=== PATIENT | male | born 1995 | race Hispanic/Latino ===

== ENCOUNTER → 2023-11-17 | Emergency (ER) | payer SELFPAY ==
[~2023-11-17] MED LIST: ACETAMINOPHEN 500 MG TAB ONE; CEPHALEXIN 250 MG CAP ONE; IBUPROFEN 400 MG TAB ONE
--- OUTSIDE RECORDS SUMMARY | 2023-11-17 20:58 | XMS REPORT | Continuity of Care Document ---
Author Name Unknown Address [address] [address] [place] [address] [facility] thconnect Address [address] 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 Role Phone PCP, PATIENT DOES NOT HAVE A Primary Care Physic barb Unavailable Carmen Dukes DO Attending Clinician [phone] CARMEN DUKES Attending Clinician Unavailab le Doctor Unassigned, [place] Attending Clinician U navailable UNKNOWN, ATTENDING Attending Clinician Unavailab JOVITA Velazquez Attending Clinician Unavailable Jovita Hatfield Attending Clinician [phone] Joanne Rdz MD Attending Clinician [phone] Problems Condition Name Condition Details Condition Category Status Onset Date Resolution Date Last Treatment Date Treating Clinician Comments Source No known active problems No known active problems Disease [facility] Allergies, Adverse Reactions, Alerts Allergy Name Allergy Type Status Severity Reaction(s) Onset Date Inactive Date Treating Clinician Comments Source NO KNOWN ALLERGIE S Drug Class Active [facility] Social History Social Habit Start Date Stop Date Quantity Comments Source Exposure to SARS-CoV-2 (event) 2023-01-11 00:00:00 2023-01-21 22:09:00 Not sure [facility] Sex Assigned At 1995 00:00:00 1995 00:00:00 [facility] Smoking Status Start Date Stop Date Source Tobacco smoking consumption unknown [facility] Medications Ordered Medication Name Filled Medication Name Start Date Stop Date Current Medication? Ordering Clinician Indication Dosage Frequency Signature (SIG) Comments Components Source dexamethaso ne (DECADRON PHOSPHATE) injection 10 mg 11-12 01:00: 00 11-12 00:23 :00 No 10mg 10 mg, Intramuscu lar, ONCE, 1 dose, On Wed11/11/21 at 1999, STAT [facility] ketorolac (TORADOL) injection 60 mg 11-12 01:00: 00 11-12 00:23 :00 No 60mg 60 mg, Intramuscu lar, ONCE, 1 dose, On Wed11/11/21 at 1999, [facility] metoclopram donato HCl (REGLAN) injection 10 mg 02-03 09:45: 00 02-03 08:48 :00 No 10mg 10 mg, Slow IV Push, ONCE, 1 dose, Wed02/03/21 at 0445, [facility] iopamidol (ISOVUE 370-500 mL) injection 100 mL 02-03 09:15: 00 02-03 08:09 :00 No [id number] 100mL 100 mL, Intravenou s, ONCE, 1 dose, Wed02/03/21 at 0415, Routine [facility] NaCl 0.9% (NS) IV infusion 1,000 mL 02-03 09:00: 00 Yes 1000mL at 999 mL/hr, Intravenou s, CONTINUOUS , Starting Wed02/03/21 at 0400, Until Discontinu ed, Routine [facility] ondansetron (ZOFRAN (PF)) injection 4 mg 02-03 09:00: 00 02-03 07:55 :00 No 4mg 4 mg, Slow IV Push, ONCE, 1 dose, Wed02/03/21 at 0400, [facility] morpHINE injection 4 mg 02-03 09:00: 00 02-03 07:55 :00 No 4mg 4 mg, Slow IV Push, ONCE, 1 dose, Wed02/03/21 at 0400, STAT [facility] maalox:diph enhydrAMINE :lidocaine 2 % viscous 1:1:1 ([facility]) oral suspension 15 mL 02-03 07:15: 00 02-03 07:11 :00 No 15mL 15 mL, Oral, ONCE, 1 dose, Wed02/03/21 at 0215, DAVID [facility] dicyclomine (BENTYL) tablet 20 mg 02-03 07:00: 00 02-03 07:00 :00 No 20mg 20 mg, Oral, ONCE NOW, 1 dose, Wed02/03/21 at 0200, DAVID [facility] ketorolac (TORADOL) injection 30 mg 02-03 06:00: 00 02-03 06:01 :00 No 30mg 30 mg, Slow IV Push, ONCE, 1 dose, Wed02/03/21 at 0100, DAVID
Fa culty member approving Restricted medication : EMERGENCY ROOM, [facility] dicyclomine 20 mg tablet 02-03 00:00: 00 Yes [id number] 20mg Take 1 tablet by mouth every 6 (six) hours as needed for Abdominal pain. [facility] ondansetron (ZOFRAN) 4 mg tablet 02-03 00:00: 00 Yes [id number] 4mg Take 1 tablet by mouth every 8 (eight) hours as needed for Nausea and Vomiting (N/V). [facility] traMADoL (ULTRAM) 50 mg tablet 02-03 00:00: 00 Yes [id number] 50mg Take 1 tablet by mouth every 6 (six) hours as needed for Pain (scale 7-10). Indication s: acute pain [facility] dicyclomine 20 mg tablet 02-03 00:00: 00 Yes [id number] 20mg Take 1 tablet by mouth every 6 (six) hours as needed for Abdominal pain. [facility] ondansetron (ZOFRAN) 4 mg tablet 02-03 00:00: 00 Yes [id number] 4mg Take 1 tablet by mouth every 8 (eight) hours as needed for Nausea and Vomiting (N/V). [facility] traMADoL (ULTRAM) 50 mg tablet 02-03 00:00: 00 Yes [id number] 50mg Take 1 tablet by mouth every 6 (six) hours as needed for Pain (scale 7-10). Indication s: acute pain [facility] dicyclomine 20 mg tablet 02-03 00:00: 00 Yes [id number] 20mg Take 1 tablet by mouth every 6 (six) hours as needed for Abdominal pain. [facility] ondansetron (ZOFRAN) 4 mg tablet 02-03 00:00: 00 Yes [id number] 4mg Take 1 tablet by mouth every 8 (eight) hours as needed for Nausea and Vomiting (N/V). [facility] traMADoL (ULTRAM) 50 mg tablet 02-03 00:00: 00 Yes [id number] 50mg Take 1 tablet by mouth every 6 (six) hours as needed for Pain (scale 7-10). Indication s: acute pain [facility] dicyclomine 20 mg tablet 02-03 00:00: 00 Yes [id number] 20mg Take 1 tablet by mouth every 6 (six) hours as needed for Abdominal pain. [facility] ondansetron (ZOFRAN) 4 mg tablet 02-03 00:00: 00 Yes [id number] 4mg Take 1 tablet by mouth every 8 (eight) hours as needed for Nausea and Vomiting (N/V). [facility] traMADoL (ULTRAM) 50 mg tablet 02-03 00:00: 00 Yes [id number] 50mg Take 1 tablet by mouth every 6 (six) hours as needed for Pain (scale 7-10). Indication s: acute pain [facility] Vital Signs Vital Name Observation Time Observation Value Comments S kwesi Systolic blood pressure 2023-01-22 03:10:00 169 mm[Hg] [facility] Diastolic blood pressure 2023-01-22 03:10:00 81 mm[Hg] [facility] Heart rate 2023-01-22 03:10:00 82 /min [facility] Body temperature 2023-01-22 03:10:00 37.22 Krystal [facility] Respiratory rate 2023-01-22 03:10:00 18 /min [facility] Body height 2023-01-22 03:10:00 175.3 cm [facility] Body weight 2023-01-22 03:10:00 104.327 kg [facility] BMI 2023-01-22 03:10:00 33.97 kg/m2 [facility] Oxygen saturation in Arterial blood by Pulse oximetry 2023-01-22 03:10:00 97 /min [facility] Systolic blood pressure 2021-11-11 23:46:00 157 mm[Hg] [facility] Diastolic blood pressure 2021-11-11 23:46:00 94 mm[Hg] [facility] Heart rate 2021-11-11 23:46:00 87 /min [facility] Body temperature 2021-11-11 23:46:00 37 Krystal [facility] Respiratory rate 2021-11-11 23:46:00 14 /min [facility] Body height 2021-11-11 23:46:00 175.3 cm [facility] Body weight 2021-11-11 23:46:00 107.502 kg [facility] BMI 2021-11-11 23:46:00 35.00 kg/m2 [facility] Oxygen saturation in Arterial blood by Pulse oximetry 2021-11-11 23:46:00 99 /min [facility] Systolic blood pressure 2021-02-03 09:02:00 98 mm[Hg] [facility] Diastolic blood pressure 2021-02-03 09:02:00 68 mm[Hg] [facility] Heart rate 2021-02-03 09:02:00 103 /min [facility] Respiratory rate 2021-02-03 09:02:00 16 /min [facility] Oxygen saturation in Arterial blood by Pulse oximetry 2021-02-03 09:02:00 98 /min [facility] Body temperature 2021-02-03 05:12:00 36.56 Krystal [facility] Body height 2021-02-03 05:12:00 175.3 cm [facility] Body weight 2021-02-03 05:12:00 104.327 kg [facility] BMI 2021-02-03 05:12:00 33.97 kg/m2 [facility] Procedures Procedure Date / Time Performed Performing Clinicia n Source ASSIGNMENT OF BENEFITS 2023-01-22 03:19:59 Docto r Unassigned, [place] [facility] NOTICE OF PRIVACY PRACTICES 2023-01-22 03:07:44 Doctor Unassigned, [place] [facility] CONSENT/REFUSAL FOR DIAGNOSIS AND TREATMENT 2023-01-22 03:07:26 Doctor Unassigned, [place] [facility] RAPID STREP SCREEN FOR GROUP A 2021-11-11 23:55:00 Jovita Fried [facility] NOTICE OF PRIVACY PRACTICES 2021-11-11 23:45:36 Doctor Unassigned, [place] [facility] CONSENT/REFUSAL FOR DIAGNOSIS AND TREATMENT 2021-11-11 23:44:59 Doctor Unassigned, [place] [facility] CT ABDOMEN PELVIS W CONTRAST 2021-02-03 08:14:08 Joanne Rdz [facility] URINALYSIS 2021-02-03 07:08:00 Jovita Fried [facility] XR ABDOMEN 1 VW 2021-02-03 06:16:51 [facility] 2021-02-03 05:31:00 Jovita Fried [facility] HEPATIC FUNCTION PANEL ([id number]) (ALB,T.PRO,BILI T,BU/BC,ALT,AST,ALK PHOS) 2021-02-03 05:31:00 Jovita Fried [facility] BASIC METABOLIC PANEL (NA, K, CL, CO2, GLUCOSE, BUN, CREATININE, CA) 2021-02-03 05:31:00 Jovita Freid [facility] CBC WITH DIFF 2021-02-03 05:31:00 Jovita Fried [facility] Encounters Start Date/Time End Date/Time Encounter Type Admission Type Attending Clinicians Care Facility Care Department Encounter ID Source 2023-01-21 22:13:00 2023-01-21 23:25:00 Emergency Carmen Dukes [facility] [id number] [facility] 2023-01-21 22:13:00 2023-01-21 23:25:00 Emergency X CARMEN DUKES [facility] ERT [id number] [facility] 2023-01-21 00:00:00 2023-01-21 00:00:00 Orders Only Doctor Unassigned, [place] [facility] [id number] [facility] 2022-08-08 18:20:00 2022-08-08 18:20:00 Outpatient R UNKNOWN, ATTENDING [facility] [id number] [facility] 2021-11-11 18:52:00 2021-11-11 20:00:00 Emergency X JOVITA FRIED [facility] ERT [id number] [facility] 2021-11-11 18:52:00 2021-11-11 20:00:00 Emergency Jovita Fried [facility] [id number] [facility] 2021-02-03 00:02:00 2021-02-03 04:05:00 Emergency Jovita Fried [facility] [id number] [facility] 2021-02-03 00:02:00 2021-02-03 00:02:00 Emergency X JOVITA FRIED [facility] ERT [id number] [facility] Results Test Description Test Time Test Comments Results Result Co mments Source [facility] Metabolic Panel (NA, K, CL, CO2, GLUCOSE, BUN, CREATININE, CA)2021-02-03 06:03:33* Test Item Value Reference Range Interpretation Comme nts NA (test code = 1587342455) 139 mmol/L 135-145 K (test code = 3806897232) 4.2 mmol/L 3.5-5.0 CL (test code = 8238904553) 105 mmol/L 98-108 CO2 TOTAL (test code = 7770791667) 26 mmol/L 23-31 AGAP (test code = 6978183618) 2-16 BUN (test code = 3408758034) 13 mg/dL 7-23 GLUCOSE (test code = 7680418737) 139 mg/dL 70-110 H CREATININE (test code = 8613088002) 0.72 mg/dL 0.60-1.25 CALCIUM (test code = 8207517549) 9.4 mg/dL 8.6-10.6 eGFR (test code = 9967539003) mL/min/1.73m2 JAMIL (test code = JAMIL) Association of Glomerular Filtration Rate (GFR) and Staging of Kidney Disease* + --+ --+ ------+| GFR (mL/min/1.73 m2) ?| With Kidney Damage ?| ?Without Kidney Damage+ --------+ --------+ +| ?>90 ?| ?Stage one ?| ? Normal ?+ ---+ ---+ -------+| ?60-89 ?| ?Stage two ?| ? Decreased GFR ? + --+ --+ ------+| ?30-59 ?| ?Stage three ?| ? Stage three ? + --+ --+ ------+| ?15-29 ?| ?Stage four ? | ? Stage four ?+ ---+ ---+ -------+| ?<15 (or dialysis) ? ?| ?Stage five ? | ? Stage five ?+ ---+ ---+ -------+ *Each stage assumes the associated GFR level has been in effect for at least three months. ?Stages 1 to 5, with or without kidney disease, indicate chronic kidney disease. Notes: Determination of stages one and two (with eGFR >59mL/min/1.73 m2) requires estimation of kidney damage for at least three months as defined by structural or functional abnormalities of the kidney, manifested by either:Pathological abnormalities or Markers of kidney damage (including abnormalities in the composition of the blood or urine or abnormalities in imaging tests). Lab Interpretation (test code = 40683-5) [facility] (ALB, T.PRO, BILI T, BU/BC, ALT, AST, ALK PHOS)2021-02-03 06:03:28* Test Item Value Reference Range Interpretation Comme nts TOTAL BILI (test code = 7542097519) 0.4 mg/dL 0.1-1.1 BILI UNCON (test code = 1614885789) 0.3 mg/dL 0.1-1.1 BILI CONJ (test code = 6984078714) 0.0 mg/dL 0.0-0.3 T PROTEIN (test code = 0518715505) 8.2 g/dL 6.3-8.2 ALBUMIN (test code = 7088017098) 4.6 g/dL 3.5-5.0 ALK PHOS (test code = 0323878611) 103 U/L 34-122 ALTv (test code = 1742-6) 38 U/L 5-50 AST(SGOT) (test code = 4837277653) 31 U/L 13-40 Lab Interpretation (test cod e = 80651-7) Normal [facility] Aikow1366-08-22 06:03:13* Test Item Value Reference Range Interpretation Comme nts LIPASE (test code = 3978863933) 160 U/L 0-220 Lab Interpretation (test cod e = 89180-1) [facility] with Mgzdhijnglgl6740-28-83 05:43:52* Test Item Value Reference Range Interpretation Comme nts WBC (test code = 6690-2) See_Comment H [Automated Keeka ge] The system which generated this result transmitted reference range: 4.20 - 10.70 10*3/?L. The reference range was not used to interpret this result as normal/abnormal. RBC (test code = 789-8) See_Comment [Automated Keeka ge] The system which generated this result transmitted reference range: 4.26 - 5.52 10*6/?L. The reference range was not used to interpret this result as normal/abnormal. HGB (test code = 718-7) 15.1 g/dL 12.2-16.4 HCT (test code = 4544-3) 45.7 % 38.4-49.3 MCV (test code = 787-2) 82.9 fL 81.7-95.6 MCH (test code = 785-6) 27.4 pg 26.1-32.7 MCHC (test code = 786-4) 33.0 g/dL 31.2-35.0 RDW-SD (test code = 19794-5) 38.8 fL 38.5-51.6 RDW-CV (test code = 788-0) 13.0 % 12.1-15.4 PLT (test code = 777-3) See_Comment [Automated messa ge] The system which generated this result transmitted reference range: 150 - 328 10*3/?L. The reference range was not used to interpret this result as normal/abnormal. MPV (test code = 20801-6) 9.6 fL 9.8-13.0 L NRBC/100 WBC (test code = 1583737628) See_Comment [Automated Favoe ssage] The system which generated this result transmitted reference range: 0.0 - 10.0 /100 WBCs. The reference range was not used to interpret this result as normal/abnormal. NRBC x10^3 (test code = 7554217161) <0.01 See_Comment [Automated messa ge] The system which generated this result transmitted reference range: 10*3/?L. The reference range was not used to interpret this result as normal/abnormal. GRAN MAT (NEUT) % (test code = 770-8) 73.8 % IMM GRAN % (test code = 8960543276) 0.70 % LYMPH % (test code = 736-9) 19.8 % MONO % (test code = 5905-5) 4.6 % EOS % (test code = 713-8) 0.9 % BASO % (test code = 706-2) 0.2 % GRAN MAT x10^3(ANC) (test code = 7488725525) 8.30 10*3/uL 1.99-6.95 H IMM GRAN x10^3 (test code = 0595632674) 0.08 10*3/uL 0.00-0.06 H LYMPH x10^3 (test code = 731-0) 2.22 10*3/uL 1.09-3.23 MONO x10^3 (test code = 742-7) 0.52 10*3/uL 0.36-1.02 EOS x10^3 (test code = 711-2) 0.10 10*3/uL 0.06-0.53 BASO x10^3 (test code = 704-7) <0.03 0.01-0.09 Lab Interpretation (test code = 36007-0) Abnormal [facility]"
--- NOTE | 2023-11-17 21:12 | ER ---
Nurse's Notes [facility] Name: Pratik Matos Age: 28 yrs Sex: Male : 1995 Arrival Date: 11/17/2023 Time: 20:56 Bed 20 Private MD: Diagnosis: Balanoposthitis;Balanitis Presentation: 11/16 21:04 Chief complaint: Patient states: I have been having swelling to my penis for 2 or 3 kd3 days now. I am uncircumcised and i am not sure if i have a yeast infection or not. I am not erect at all, its just swollen. Coronavirus screen: Vaccine status: Patient reports being unvaccinated. Ebola Screen: No symptoms or risks identified at this time. Initial Sepsis Screen: Does the patient meet any 2 criteria? No. Patient's initial sepsis screen is negative. Does the patient have a suspected source of infection? No. Patient's initial sepsis screen is negative. Risk Assessment: Do you want to hurt yourself or someone else? Patient reports no desire to harm self or others. Onset of symptoms was November 17, 2023. 21:04 Method Of Arrival: Ambulatory kd3 21:04 Acuity: MONSE 3 kd3 Triage Assessment: 21:06 General: Appears in no apparent distress. Behavior is calm, cooperative. Pain: kd3 Complains of pain in head of penis and shaft of penis. Historical: - Allergies: 21:06 No Known Allergies; kd3 - Immunization history:: Adult Immunizations up to date. - Social history:: Smoking status: Patient denies any tobacco usage or history of. Screenin:10 [facility] ED Fall Risk Assessment (Adult) History of falling in the last 3 months, jw7 including since admission No falls in past 3 months (0 pts) Confusion or Disorientation No (0 pts) Intoxicated or Sedated No (0 pts) Impaired Gait No (0 pts) Mobility Assist Device Used No (0 pt) Altered Elimination No (0 pt) Score/Fall Risk Level 0 - 2 = Low Risk Oriented to surroundings, Maintained a safe environment, Educated pt \T\ family on fall prevention, incl call for assistance when getting out of bed. Abuse screen: Denies threats or abuse. Denies injuries from another. Nutritional screening: No deficits noted. Tuberculosis screening: No symptoms or risk factors identified. Assessment: 21:10 General: Appears in no apparent distress. comfortable, Behavior is calm, cooperative. jw7 Pain: Complains of pain in shaft of penis and head of penis Pain does not radiate. Pain currently is 6 out of 10 on a pain scale. Quality of pain is described as burning, Pain began 2-3 days ago. Is continuous. Neuro: Level of Consciousness is awake, alert, obeys commands, Oriented to person, place, time, situation. Cardiovascular: Heart tones S1 S2 present Capillary refill < 3 seconds Clubbing of nail beds is absent JVD is absent Patient's skin is warm and dry. Respiratory: Airway is patent Trachea midline Respiratory effort is even, unlabored, Respiratory pattern is regular, symmetrical, Breath sounds are clear bilaterally. GI: Abdomen is flat, non-distended, Bowel sounds present X 4 quads. Abd is soft and non tender X 4 quads. : No deficits noted. No signs and/or symptoms were reported regarding the genitourinary system. EENT: No deficits noted. No signs and/or symptoms were reported regarding the EENT system. Derm: Skin is intact, is healthy with good turgor, Skin is dry, Skin is normal, Skin temperature is warm. Musculoskeletal: Circulation, motion, and sensation intact. Range of motion: intact in all extremities. 21:59 Reassessment: Patient appears in no apparent distress at this time. No changes from jw7 previously documented assessment. Patient and/or family updated on plan of care and expected duration. Pain level reassessed. Patient is alert, oriented x 3, equal unlabored respirations, skin warm/dry/pink. Vital Signs: 21:04 Weight 102.06 kg; Height 5 ft. 9 in. ; kd3 21:23 BP 139 / 78; Pulse 100; Resp 18; Temp 98.8; Pulse Ox 97% on R/A; vk 21:04 Body Mass Index 33.23 (102.06 kg, 175.26 cm) kd3 ED Course: 20:58 Patient arrived in ED. mr 20:59 Alan Johnson MD is Attending Physician. sp4 21:06 Triage completed. kd3 21:06 Arm band placed on. kd3 21:10 Prabhu Hackett MD is Referral Physician. sp4 21:10 Patient has correct armband on for positive identification. Bed in low position. Call jw7 light in reach. Provided Education on: Use of Call Light. 21:17 Jerrica Serna, RN is Primary Nurse. jw7 22:01 No provider procedures requiring assistance completed. Patient did not have IV access jw7 during this emergency room visit. Administered Medications: 21:50 Drug: Cephalexin PO 500 mg PO once Route: PO; jw7 22:02 Follow up: Response: No adverse reaction jw7 21:50 Drug: Ibuprofen PO 800 mg PO once Route: PO; jw7 22:02 Follow up: Response: No adverse reaction jw7 21:50 Drug: Acetaminophen PO 1000 mg PO once Route: PO; jw7 22:01 Follow up: Response: No adverse reaction jw7 Medication: 22:01 VIS not applicable for this client. jw7 Outcome: 21:11 Discharge ordered by . malathi 22:01 Discharged to home ambulatory, jw7 22:01 Condition: stable 22:01 Discharge instructions given to patient, Instructed on discharge instructions, follow up and referral plans. medication usage, Demonstrated understanding of instructions, follow-up care, medications, Prescriptions given X 2, 22:02 Patient left the ED. jw7 Signatures: Lillian Wong, Reg Reg mr RyleeYoko, RN RN kd3 Jerrica Serna, LALITO RN jw7 Alan Johnson MD MD sp4 Huyen Carrizales
--- NOTE | 2023-11-17 21:12 | EDPHYS ---
Physician Documentation [facility] Name: Pratik Matos Age: 28 yrs Sex: Male : 1995 Arrival Date: 11/17/2023 Time: 20:56 Bed 20 Private MD: ED Physician Alan Johnson HPI: 11/16 20:59 This 28 yrs old Male presents to ER via Unassigned with complaints of Penile sp4 Problem, Swelling. Historical: - Allergies: 21:06 No Known Allergies; kd3 - Immunization history:: Adult Immunizations up to date. - Social history:: Smoking status: Patient denies any tobacco usage or history of. Vital Signs: 21:04 Weight 102.06 kg; Height 5 ft. 9 in. ; kd3 21:23 BP 139 / 78; Pulse 100; Resp 18; Temp 98.8; Pulse Ox 97% on R/A; vk 21:04 Body Mass Index 33.23 (102.06 kg, 175.26 cm) kd3 MDM: 21:01 Patient medically screened. sp4 Administered Medications: 21:50 Drug: Cephalexin PO 500 mg PO once Route: PO; jw7 22:02 Follow up: Response: No adverse reaction jw7 21:50 Drug: Ibuprofen PO 800 mg PO once Route: PO; jw7 22:02 Follow up: Response: No adverse reaction jw7 21:50 Drug: Acetaminophen PO 1000 mg PO once Route: PO; jw7 22:01 Follow up: Response: No adverse reaction jw7 Disposition Summary: 11/17/23 21:11 Discharge Ordered Notes: Location: Home sp4 Problem: new sp4 Symptoms: have improved sp4 Condition: Stable sp4 Diagnosis - Balanoposthitis sp4 - Balanitis sp4 Followup: sp4 - With: Prabhu Hackett MD - When: 7 - 10 days - Reason: Recheck today's complaints Discharge Instructions: - Discharge Summary Sheet sp4 - Balanitis sp4 Forms: - Patient Portal Instructions sp4 Prescriptions: - Cephalexin 500 mg Oral Capsule - take 1 capsule ORAL route every 12 hours for 10 days; 20 capsule; Refills: 0, sp4 Product Selection Permitted - Clotrimazole 1 % Topical cream - Apply to affected area 1 application TOPICAL route every 12 hours for 10 days sp4 apply under the foreskin twice daily for 10 days; 15 gram; Refills: 0, Product Selection Permitted Signatures: Yoko Mckee RN RN kd3 Jerrica Serna RN RN jw7 Alan Johnson MD MD sp4
[2023-11-17 22:16] VITALS: BP 139/78; TEMP 98.8; O2SAT 97
== END ==
LOC: ER 20:56
DX: N48.1 Balanitis (principal)

== ENCOUNTER 2024-04-20 20:43 | Emergency (ER) | payer SELFPAY ==
[2024-04-20] MEDS ORDERED: CYCLOBENZAPRINE 10 MG TAB ONE (21:27)
[2024-04-20] MEDS ORDERED: KETOROLAC 30 MG/ML INJ ONE (21:27)
[2024-04-20] MEDS ORDERED: dexAMETHasone 10 MG/ML VIAL ONE (21:27)
--- NOTE | 2024-04-20 22:57 | RAD REPORT ---
EXAM DESCRIPTION: CT - Spine Lumbar Wo Con - 04/20/2024 9:49 pm CLINICAL HISTORY: Pain;Radiculopathy COMPARISON: No comparisons TECHNIQUE: Axial noncontrast CT imaging of the lumbar spine was performed with coronal and sagittal re-formatted images. All CT scans are performed using dose optimization technique as appropriate and may include automated exposure control or mA/KV adjustment according to patient size. FINDINGS: No acute lumbar spine fracture seen. No aggressive marrow pattern or malalignment. Paraspinal tissues are normal in thickness. No paraspinal abscess or hematoma seen. Intervertebral disc disease assessment is inherently limited by CT. Within these limitations, no high -grade canal stenosis suspected. Small disc bulge centrally at L5-S1. No significant central canal st enosis or foraminal narrowing. IMPRESSION: No acute findings of the lumbar spine. If there is persistent clinical concern for radiculopathy, additional evaluation by lumbar spine MRI on outpatient basis would be helpful.
--- NOTE | 2024-04-20 23:02 | EDPHYS ---
Physician Documentation [facility] Name: Pratik Matos Age: 28 yrs Sex: Male : 1995 Arrival Date: 04/20/2024 Time: 20:43 Bed 14 Private MD: ED Physician Alan Johnson HPI: 04/20 21:00 This 28 yrs old Male presents to ER via Ambulatory with complaints of Back sp4 Pain. 21:35 The patient presents with pain. patient states that he injured his low back at work sb4 about 2 weeks ago. he has not rested nor taken any mediations. states the pain is getting more intense and is now radiating down his legs. denies any numbness, tingling, or gait abnormalities. Historical: - Allergies: 20:58 No Known Allergies; kj2 - Home Meds: 20:59 None [Active]; kj2 - PMHx: 20:59 None; kj2 - PSHx: 20:59 None; kj2 - Immunization history:: Adult Immunizations unknown. - Infectious Disease History:: Denies. - Social history:: Smoking status: Reported history of juuling and/or vaping. ROS: 21:35 Constitutional: Negative for fever, chills, and weight loss, sb4 21:36 Back: Positive for injury or acute deformity, pain at rest, pain with movement, sb4 radiated pain, of the lumbar area, 21:36 All other systems are negative, Exam: 21:36 Constitutional: This is a well developed, well nourished patient who is awake, alert, sb4 and in no acute distress. Head/Face: Normocephalic, atraumatic. Eyes: Extra-ocular motions intact. Periorbital areas with no swelling, redness, or edema. ENT: Mucous membranes moist. Skin: Warm, dry with normal turgor. Normal color with no rashes, no lesions, and no evidence of cellulitis. Neuro: Awake and alert, GCS 15, oriented to person, place, time, and situation. Motor strength 5/5 in all extremities. Sensory grossly intact. 21:36 Back: pain, that is moderate, ROM is painful, normal spinal alignment noted, CVA tenderness, is absent, muscle spasm, is not present, 21:36 Neuro: Motor: moves all fours, Sensation: is normal, Gait: is steady, at a normal pace, without difficulty, Vital Signs: 20:57 BP 124 / 78; Pulse 75; Resp 18; Temp 98.7; Pulse Ox 98% on R/A; Weight 99.79 kg; Height kj2 5 ft. 9 in. ; Pain 8/10; 22:23 BP 124 / 66; Pulse 60; Resp 17; Pulse Ox 97% on R/A; Pain 6/10; rg5 23:00 BP 125 / 76; Pulse 78; Resp 17; Pulse Ox 98% on R/A; Pain 4/10; rg5 20:57 Body Mass Index 32.49 (99.79 kg, 175.26 cm) kj2 20:57 Pain Scale: Adult kj2 22:23 Pain Scale: Adult rg5 23:00 Pain Scale: Adult rg5 Raghav Coma Score: 21:09 Eye Response: spontaneous(4). Motor Response: obeys commands(6). Verbal Response: rg5 oriented(5). Total: 15. MDM: 21:02 Patient medically screened. sb4 23:01 Data reviewed: vital signs, nurses notes, radiologic studies, and as a result, I will sb4 discharge patient. Counseling: I had a detailed discussion with the patient and/or guardian regarding the historical points, exam findings, and any diagnostic results supporting the discharge/admit diagnosis, radiology results, to return to the emergency department if symptoms worsen or persist or if there are any questions or concerns that arise at home. 04/20 21:18 Order name: CT Lumbar Spine Wo Con; Complete Time: 22:58 sb4 Administered Medications: 21:30 Drug: Ketorolac IM 30 mg IM once Route: IM; Site: right gluteus; rg5 23:18 Follow up: Response: No adverse reaction; Pain is decreased rg5 21:30 Drug: Dexamethasone IM 10 mg IM once Route: IM; Site: right gluteus; rg5 23:17 Follow up: Response: No adverse reaction; Pain is decreased rg5 21:37 Drug: Cyclobenzaprine PO 10 mg PO once Route: PO; rg5 23:17 Follow up: Response: No adverse reaction; Pain is decreased rg5 Disposition: 04/21 01:55 Co-signature as Attending Physician, Alan Johnson MD I agree with the assessment sp4 and plan of care. I reviewed the patient's care provided by the Advanced Practice Provider and agree with the diagnosis and treatment plan. Disposition Summary: 04/20/24 23:01 Discharge Ordered Notes: Location: Home sb4 Problem: an ongoing problem sb4 Symptoms: have improved sb4 Condition: Stable sb4 Diagnosis - Strain of muscle, fascia and tendon of lower back sb4 Followup: sb4 - With: Private Physician - When: As needed - Reason: Recheck today's complaints, Re-evaluation by your physician Discharge Instructions: - Discharge Summary Sheet sb4 - Acute Back Pain, Adult sb4 - Low Back Sprain or Strain Rehab sb4 Forms: - Work release form sb4 - Patient Portal Instructions sb4 - Leadership Thank You Letter sb4 Prescriptions: - Cyclobenzaprine 10 mg Oral Tablet - take 1 tablet ORAL route every 8 hours As needed; 30 tablet; Refills: 0, sb4 Product Selection Permitted - Diclofenac Sodium 75 mg Oral Tablet Sustained Release - take 1 tablet ORAL route 2 times per day; 30 tablet; Refills: 0, Product sb4 Selection Permitted - Medrol (David) 4 mg Oral Tablets, Dose Pack - take 1 tablet ORAL route as directed - follow package instructions; 1 packet; sb4 Refills: 0, Product Selection Permitted Signatures: Dispatcher [employer] Rhiannon Watson, CRISTINA EVANS sb4 Alan Johnson MD MD sp4 Clayton Peterson RN RN rg5 Juany Santillan RN RN kj2
--- NOTE | 2024-04-20 23:02 | ER ---
Nurse's Notes [facility] Name: Pratik Matos Age: 28 yrs Sex: Male : 1995 Arrival Date: 04/20/2024 Time: 20:43 Bed 14 Private MD: Diagnosis: Strain of muscle, fascia and tendon of lower back Presentation: 04/20 20:55 Chief complaint: Patient states: back pain started two weeks ago, now hurts his legs. kj2 Coronavirus screen: At this time, the client does not indicate any symptoms associated with coronavirus-19. Ebola Screen: No symptoms or risks identified at this time. Initial Sepsis Screen: Does the patient meet any 2 criteria? No. Patient's initial sepsis screen is negative. Does the patient have a suspected source of infection? No. Patient's initial sepsis screen is negative. Risk Assessment: Do you want to hurt yourself or someone else? Patient reports no desire to harm self or others. Onset of symptoms was April 05, 2024. 20:55 Method Of Arrival: Ambulatory kj2 20:55 Acuity: MONSE 3 kj2 Triage Assessment: 21:00 General: Appears in no apparent distress. Behavior is calm, cooperative. Neuro: Level kj2 of Consciousness is awake, alert, obeys commands, Oriented to person, place, time, situation. Cardiovascular: Patient's skin is warm and dry. Respiratory: Airway is patent Respiratory effort is even, unlabored, Respiratory pattern is regular. Historical: - Allergies: 20:58 No Known Allergies; kj2 - Home Meds: 20:59 None [Active]; kj2 - PMHx: 20:59 None; kj2 - PSHx: 20:59 None; kj2 - Immunization history:: Adult Immunizations unknown. - Infectious Disease History:: Denies. - Social history:: Smoking status: Reported history of juuling and/or vaping. Screenin:09 [facility] ED Fall Risk Assessment (Adult) History of falling in the last 3 months, rg5 including since admission No falls in past 3 months (0 pts) Confusion or Disorientation No (0 pts) Intoxicated or Sedated No (0 pts) Impaired Gait No (0 pts) Mobility Assist Device Used No (0 pt) Altered Elimination No (0 pt) Score/Fall Risk Level 0 - 2 = Low Risk Oriented to surroundings, Maintained a safe environment, Educated pt \T\ family on fall prevention, incl call for assistance when getting out of bed, Hourly rounding (assess needs \T\ fall precautionary measures) done. Abuse screen: Denies threats or abuse. Nutritional screening: No deficits noted. Tuberculosis screening: No symptoms or risk factors identified. Assessment: 21:09 General: Appears in no apparent distress. Behavior is calm, cooperative, appropriate rg5 for age. Pain: Complains of pain in back Pain radiates to right leg and left leg Pain currently is 6 out of 10 on a pain scale. Quality of pain is described as shooting, pinching, Pain began 2-3 days ago. Is intermittent. Neuro: Level of Consciousness is awake, alert, obeys commands, Oriented to person, place, time, situation. Cardiovascular: Denies chest pain, Heart tones S1 S2 Capillary refill < 3 seconds Patient's skin is warm and dry. Respiratory: Airway is patent Trachea midline Respiratory effort is even, unlabored, Respiratory pattern is regular, symmetrical. GI: Abdomen is round non-distended, Abd is soft and non tender. : No signs and/or symptoms were reported regarding the genitourinary system. EENT: No deficits noted. Derm: Skin is intact, Skin is dry, Skin is normal, Skin temperature is warm. Musculoskeletal: Range of motion: intact in all extremities. 22:24 Reassessment: Patient and/or family updated on plan of care and expected duration. Pain rg5 level reassessed. Patient is alert, oriented x 3, equal unlabored respirations, skin warm/dry/pink. Patient states symptoms have improved. 23:15 Reassessment: Patient and/or family updated on plan of care and expected duration. Pain rg5 level reassessed. Patient is alert, oriented x 3, equal unlabored respirations, skin warm/dry/pink. Patient states symptoms have improved. Vital Signs: 20:57 BP 124 / 78; Pulse 75; Resp 18; Temp 98.7; Pulse Ox 98% on R/A; Weight 99.79 kg; Height kj2 5 ft. 9 in. ; Pain 8/10; 22:23 BP 124 / 66; Pulse 60; Resp 17; Pulse Ox 97% on R/A; Pain 6/10; rg5 23:00 BP 125 / 76; Pulse 78; Resp 17; Pulse Ox 98% on R/A; Pain 4/10; rg5 20:57 Body Mass Index 32.49 (99.79 kg, 175.26 cm) kj2 20:57 Pain Scale: Adult kj2 22:23 Pain Scale: Adult rg5 23:00 Pain Scale: Adult rg5 Raghav Coma Score: 21:09 Eye Response: spontaneous(4). Motor Response: obeys commands(6). Verbal Response: rg5 oriented(5). Total: 15. ED Course: 20:50 Patient arrived in ED. gm2 20:56 Triage completed. kj2 20:56 Arm band placed on right wrist. Patient placed in waiting room. kj2 21:00 Rhiannon Vargas PA-C is PHCP. sb4 21:00 Alan Johnson MD is Attending Physician. sb4 21:01 Clayton Peterson RN is Primary Nurse. rg5 21:09 Patient has correct armband on for positive identification. Bed in low position. Call rg5 light in reach. Side rails up X 1. Adult w/ patient. 21:09 No provider procedures requiring assistance completed. rg5 21:51 CT Lumbar Spine Wo Con In Process Unspecified. EDMS 22:24 Awaiting lab results. rg5 23:33 Patient did not have IV access during this emergency room visit. rg5 23:34 Provided Education on: post er care. rg5 Administered Medications: 21:30 Drug: Ketorolac IM 30 mg IM once Route: IM; Site: right gluteus; rg5 23:18 Follow up: Response: No adverse reaction; Pain is decreased rg5 21:30 Drug: Dexamethasone IM 10 mg IM once Route: IM; Site: right gluteus; rg5 23:17 Follow up: Response: No adverse reaction; Pain is decreased rg5 21:37 Drug: Cyclobenzaprine PO 10 mg PO once Route: PO; rg5 23:17 Follow up: Response: No adverse reaction; Pain is decreased rg5 Medication: 21:09 VIS not applicable for this client. rg5 Outcome: 23:01 Discharge ordered by . sb4 23:32 Discharged to home ambulatory, rg5 23:32 Condition: stable 23:32 Discharge instructions given to patient, Instructed on discharge instructions, follow up and referral plans. Demonstrated understanding of instructions, follow-up care, medications, Prescriptions given X 3, 23:34 Patient left the ED. rg5 Signatures: Dispatcher [employer] EDRhiannon De La Paz, CRISTINA PAAndrea sb4 Diana Cuellar gm2 Clayton Peterson, RN RN rg5 Juany Santillan RN RN kj2
[2024-04-20 23:39] VITALS: TEMP 98.7
[2024-04-20 23:41] VITALS: BP 125/76; O2SAT 98
== END 2024-04-20 23:34 | disposition home or self-care (01) ==
LOC: ER 20:43
DX: S39.012A Strain of muscle, fascia and tendon of lower back, initial encounter (principal)
CPT/HCPCS: 72131; 96372; 99284; J1100

== ENCOUNTER 2024-09-01 11:42 | Observation (INO) | payer SELFPAY ==
--- NOTE | 2024-09-01 12:31 | RAD REPORT ---
EXAMINATION: TWO VIEW CHEST XR CLINICAL INDICATION: Male, 29 years old. [facility] MAIN COUGH Bed: TECHNIQUE: 2 view radiographs of the chest were performed. COMPARISON: No prior exam. FINDINGS: Elevation of the right hemidiaphragm, with underlying atelectasis although a component of pneumonia w ould be difficult to exclude. Streaky opacity along the minor fissure may reflect atelectasis, pleural thickening, or effusion. No pneumothorax or sizable effusion. The heart is normal in size. Me diastinal contours are unremarkable. IMPRESSION: Right basilar opacification as above, may reflect atelectasis, although a component of underlying pne umonia would be difficult to exclude.
[2024-09-01 12:57] LABS: SARS-CoV-2 Antigen CONTROL BLUE LINE VIS/BG OK; SARS-CoV-2 Antigen Rapid Res Negative (Negative)
[2024-09-01 15:22] LABS: Absolute Basophils 0.1 K/uL (0-0.5); Absolute Eosinophils 0.1 K/uL (0-0.5); Absolute Lymphocytes (CBC) 1.4 K/uL (0.7-4.9); Absolute Monocytes 0.9 K/uL (0.1-1.3); Absolute Neutrophil 17.6 K/uL (1.8-8.0); Basophils % 0.3 % (0-1.3); Eosinophils % 0.6 % (0-4.4); Hematocrit 44.6 % (39.6-49.0); Hemoglobin 15.1 g/dL (13.6-17.9); Lymphocytes % 7.1 % (15.3-44.8); MCH 28.7 pg (27.0-35.0); MCHC 33.9 g/dL (32.0-36.0); MCV 84.7 fL (80-100); MPV 7.7 fL (7.6-11.3); Monocytes % 4.5 % (3.3-12.3); Neutrophils % 87.5 % (41.7-73.7); Platelets 469 thou/uL (152-406); RBC Red Blood Cell Count 5.27 M/uL (4.33-5.43); Red Cell Distribution Width 13.3 % (12.1-15.2)
[2024-09-01] MEDS ORDERED: ACETAMINOPHEN 500 MG TAB ONE (15:24)
[2024-09-01] MEDS ORDERED: levoFLOXacin 250 MG TAB ONE (15:24)
[2024-09-01] MEDS ORDERED: IPRATROPIUM BROM 0.5MG/2.5ML ONE (15:24)
[2024-09-01] MEDS ORDERED: LEVALBUTEROL 1.25 MG/3 ML NEB ONE (15:24)
[2024-09-01] MEDS ORDERED: LEVALBUTEROL 0.63 MG/3 ML NEB ONE (15:24)
[2024-09-01] MEDS ORDERED: CEFTRIAXONE 2000 MG/VIAL ONE (15:25)
[2024-09-01] MEDS ORDERED: IBUPROFEN 400 MG TAB ONE (15:25)
--- NOTE | 2024-09-01 15:25 | EDPHYS ---
Physician Documentation [facility] Name: Pratik Matos Age: 29 yrs Sex: Male : 1995 Arrival Date: 09/01/2024 Time: 11:42 Bed 12 Private MD: ED Physician Lev Jesus HPI: 09/01 14:38 This 29 yrs old Male presents to ER via Ambulatory with complaints of Cough. rosalee 14:38 The patient or guardian reports airway noise, cough, difficulty breathing, flu rosalee symptoms, arthralgias, low-grade fever, myalgias. Onset: The symptoms/episode began/occurred 14 day(s) ago. Historical: - Allergies: 12:22 No Known Allergies; iw - PMHx: 12:22 None; iw - PSHx: 12:22 None; iw - Immunization history:: Adult Immunizations unknown. - Infectious Disease History:: Denies. - Social history:: Smoking status: Reported history of juuling and/or vaping. ROS: 14:39 Eyes: Negative for injury, pain, redness, and discharge, ENT: Negative for injury, rosalee pain, and discharge, Neck: Negative for injury, pain, and swelling, Cardiovascular: Negative for chest pain, palpitations, and edema, Abdomen/GI: Negative for abdominal pain, nausea, vomiting, diarrhea, and constipation, Back: Negative for injury and pain, : Negative for injury, bleeding, discharge, and swelling, MS/Extremity: Negative for injury and deformity, Skin: Negative for injury, rash, and discoloration, Neuro: Negative for headache, weakness, numbness, tingling, and seizure, Psych: Negative for depression, anxiety, suicide ideation, homicidal ideation, and hallucinations, Allergy/Immunology: Negative for hives, rash, and allergies, Endocrine: Negative for neck swelling, polydipsia, polyuria, polyphagia, and marked weight changes, Hematologic/Lymphatic: Negative for swollen nodes, abnormal bleeding, and unusual bruising, 14:39 Constitutional: Positive for body aches, chills, fatigue, fever, malaise, 14:39 Cardiovascular: Positive for chest pain, palpitations, 14:39 Respiratory: Positive for cough, shortness of breath, wheezing, expiratory, 14:39 MS/extremity: Negative for acute changes, Exam: 14:39 Head/Face: Normocephalic, atraumatic. Eyes: Pupils equal round and reactive to light, rosalee extra-ocular motions intact. Lids and lashes normal. Conjunctiva and sclera are non-icteric and not injected. Cornea within normal limits. Periorbital areas with no swelling, redness, or edema. ENT: Nares patent. No nasal discharge, no septal abnormalities noted. Tympanic membranes are normal and external auditory canals are clear. Oropharynx with no redness, swelling, or masses, exudates, or evidence of obstruction, uvula midline. Mucous membranes moist. Neck: Trachea midline, no thyromegaly or masses palpated, and no cervical lymphadenopathy. Supple, full range of motion without nuchal rigidity, or vertebral point tenderness. No Meningismus. Chest/axilla: Normal chest wall appearance and motion. Nontender with no deformity. No lesions are appreciated. Abdomen/GI: Soft, non-tender, with normal bowel sounds. No distension or tympany. No guarding or rebound. No evidence of tenderness throughout. Back: No spinal tenderness. No costovertebral tenderness. Full range of motion. Skin: Warm, dry with normal turgor. Normal color with no rashes, no lesions, and no evidence of cellulitis. MS/ Extremity: Pulses equal, no cyanosis. Neurovascular intact. Full, normal range of motion., bilateral aka Neuro: Awake and alert, GCS 15, oriented to person, place, time, and situation. Cranial nerves II-XII grossly intact. Motor strength 5/5 in all extremities. Sensory grossly intact. Cerebellar exam normal. Normal gait. Psych: Awake, alert, with orientation to person, place and time. Behavior, mood, and affect are within normal limits. 14:39 Constitutional: The patient appears febrile, 14:39 Cardiovascular: Rate: tachycardic, actual rate is 100 bpm, Rhythm: regular, Pulses: Pulses are 4+ in bilateral radial, brachial, femoral, popliteal, posterior tibial and and dorsalis pedis arteries.. Heart sounds: normal, Edema: is not appreciated, JVD: is not appreciated, 14:39 Respiratory: the patient does not display signs of respiratory distress, Respirations: normal, no acute changes, Breath sounds: bronchial sounds, that are moderate, are scattered, decreased breath sounds, that are mild, that are moderate, are located in both bases, Respiratory rate: 18 14:39 Musculoskeletal/extremity: DVT Exam: No signs of deep vein thrombosis. no pain, no swelling, no tenderness, negative Homans' sign noted on exam, no appreciated bluish discoloration, no erythema, no increased warmth, Vital Signs: 12:21 BP 127 / 88; Pulse 100; Resp 18; Temp 99.5; Pulse Ox 94% ; Weight 95.25 kg; Height 5 iw ft. 9 in. ; 13:30 BP 118 / 79; Pulse 81; Resp 17; Pulse Ox 98% on R/A; ld1 14:30 BP 122 / 69; Pulse 88; Resp 18; Pulse Ox 99% on R/A; ld1 16:23 BP 128 / 74; Pulse 79; Resp 18; Temp 98.1(O); Pulse Ox 100% on R/A; ld1 12:21 Body Mass Index 31.01 (95.25 kg, 175.26 cm) iw MDM: 12:05 Medical Screening Exam initiated [facility] 09/01 12:05 Order name: SARS RAPID; Complete Time: 14:31 [facility] 09/01 12:05 Order name: Flu; Complete Time: 14:31 [facility] 09/01 14:37 Order name: CBC with Diff; Complete Time: 15:23 [facility] 09/01 14:37 Order name: Comprehensive Metabolic Panel; Complete Time: 15:43 [facility] 09/01 14:37 Order name: Blood Culture Adult (2) [facility] 09/01 14:37 Order name: Lactate w/ 2H reflex if indic.; Complete Time: 15:43 [facility] 09/01 12:05 Order name: Chest Pa And Lat (2 Views) XRAY; Complete Time: 14:31 [facility] 09/01 14:32 Order name: INCENTIVE SPIROMETRY [facility] 09/01 14:46 Order name: INCENTIVE SPIROMETRY [facility] Administered Medications: 14:35 CANCELLED (Duplicate Order): rocephin (ceftriaxone)1 grams IM once [facility] 14:37 CANCELLED (Duplicate Order): [id number] mg PO once [facility] 15:35 Drug: Rocephin IV 2 grams IV at per protocol once; Given slow IV push per pharmarcy ld1 instructions Route: IV; Rate: per protocol; Site: right antecubital; 17:23 Follow up: Response: No adverse reaction ld1 15:35 Drug: LevOfloxacin PO 750 mg PO once Route: PO; ld1 17:21 Follow up: Response: No adverse reaction ld1 15:35 Drug: NS 0.9% IV (30 ml/kg) 30 ml/kg IV at bolus once; Sepsis Protocol; to be given as ld1 a bolus over 90 minutes Route: IV; Rate: bolus; Site: right antecubital; 17:20 Follow up: Response: (VIS) Vaccine information sheet provided today. Questions and/or ld1 concerns addressed. VIS edition date: Apr 04, 2021.; IV Status: Completed infusion; IV Intake: 3000ml 15:35 Drug: Levalbuterol Inhalation 2.5 mg Inhalation once Route: Inhalation; ld1 17:20 Follow up: Response: No adverse reaction ld1 15:35 Drug: Ipratropium Inhalation Aerosol 0.5 mg Inhalation once Route: Inhalation; ld1 17:20 Follow up: Response: No adverse reaction ld1 15:35 Drug: Ibuprofen PO 800 mg PO once Route: PO; ld1 17:17 Follow up: Response: No adverse reaction ld1 17:19 Follow up: Response: No adverse reaction ld1 15:35 Drug: Acetaminophen PO 1000 mg PO once Route: PO; ld1 17:17 Follow up: Response: No adverse reaction ld1 15:35 Drug: Levalbuterol Inhalation 1.25 mg Inhalation once Route: Inhalation; ld1 15:53 Drug: Zithromax IVPB 500 mg IVPB once over 1 hrs; mix in 250 mL NS Route: IVPB; Infused ld1 Over: 1 hrs; Site: right antecubital; 17:22 Follow up: Response: No adverse reaction; IV Status: Completed infusion; IV Intake: ld1 250ml Disposition Summary: 09/01/24 15:25 Hospitalization Ordered Notes: Hospitalization Status: Inpatient Admission rosalee Provider: Ede Valiente cha Location: Telemetry/MedSurg (Inpatient) rosalee Condition: Fair rosalee Problem: new rosalee Symptoms: have improved rosalee Bed/Room Type: Standard [facility] Room Assignment: 228(09/01/24 16:14) eb Diagnosis - Dyspnea rosalee - Pneumonia due to other specified bacteria - RIGHT LOWER LOBE rosalee - Cough rosalee - Elevated white blood cell count rosalee Discharge Instructions: - Discharge Summary Sheet rosalee - Fever, Adult rosalee - Community-Acquired Pneumonia, Adult rosalee - Cool Mist Vaporizer rosalee - How to Use an Incentive Spirometer rosalee - Community-Acquired Pneumonia, Adult, [id number] [facility] - Cough, Adult [facility] Forms: - Medication Reconciliation Form rosalee - SBAR form [facility] - Leadership Thank You Letter [facility] Prescriptions: - albuterol sulfate 90 mcg/actuation Inhalation HFA Aerosol Inhaler - inhale 2 puff INHALATION route every 4 to 6 hours as needed for shortness of rosalee breath or wheezing; 2 unit; Refills: 0, Product Selection Permitted - cefdinir 300 mg Oral capsule - take 1 capsule ORAL route 2 times per day for 10 days; 20 capsule; Refills: 0, [facility] Product Selection Permitted - Zithromax 500 mg Oral Tablet - take 1 tablet ORAL route once daily for 5 days; 5 tablet; Refills: 0, Product rosalee Selection Permitted Signatures: Dispatcher [employer] EDMS Lev Jesus MD MD cha Williams, Irene, RN RN iw Jerome Moody, TRANSFORMER MAKER-C TRANSFORMER MAKER-Cla1 Suni Lopez Lauren, RN RN ld1 Corrections: (The following items were deleted from the chart) 12:06 12:06 Chest Pa And Lat (2 Views)+RAD.RAD.BRZ ordered. EDMS EDMS 12:06 12:06 SARS-COV-2 Antigen Rapid+I.LAB.BRZ ordered. EDMS EDMS 12:06 12:06 Influenza Screen (A \T\ B)+BA.LAB.BRZ ordered. EDMS EDMS 14:35 14:32 Rocephin (cefTRIAXone) IM 1 grams IM once ordered. [facility] 14:37 14:32 AZITHromycin PO 500 mg PO once ordered. [facility] 14:37 14:37 CBC+H.LAB.BRZ ordered. EDMS EDMS 14:37 14:37 COMPREHENSIVE METABOLIC PANEL+C.LAB.BRZ ordered. EDMS EDMS 14:37 14:37 BLOOD CULTURE*+BA.LAB.BRZ ordered. EDMS EDMS 14:37 14:37 LACTATE+C.LAB.BRZ ordered. EDMS EDMS 16:14 15:25 [facility]
--- NOTE | 2024-09-01 15:25 | ER ---
Nurse's Notes [facility] Name: Pratik Matos Age: 29 yrs Sex: Male : 1995 Arrival Date: 09/01/2024 Time: 11:42 Bed 12 Private MD: Diagnosis: Dyspnea;Pneumonia due to other specified bacteria-RIGHT LOWER LOBE;Cough;Elevated white blood cell count Presentation: 09/01 12:21 Chief complaint: Patient states: COUGH AND CONGESTION WITH CHEST DISCOMFORT AND VOICE iw LOSS X 2 WEEKS. Coronavirus screen: Client denies travel out of the [place] in the last 14 days. At this time, the client does not indicate any symptoms associated with coronavirus-19. Ebola Screen: Patient negative for fever greater than or equal to 101.5 degrees Fahrenheit, and additional compatible Ebola Virus Disease symptoms Patient denies exposure to infectious person. Patient denies travel to an Ebola-affected area in the 21 days before illness onset. No symptoms or risks identified at this time. Initial Sepsis Screen: Does the patient meet any 2 criteria? No. Patient's initial sepsis screen is negative. Does the patient have a suspected source of infection? No. Patient's initial sepsis screen is negative. Risk Assessment: Do you want to hurt yourself or someone else? Patient reports no desire to harm self or others. Onset of symptoms was August 18, 2024. 12:21 Method Of Arrival: Ambulatory iw 12:21 Acuity: MONSE 4 iw 14:46 Acuity: MONSE 3 iw Triage Assessment: 12:22 General: Appears in no apparent distress. comfortable, Behavior is calm, cooperative. iw Pain: Denies pain. Neuro: Level of Consciousness is awake, alert, obeys commands. Respiratory: Airway is patent Respiratory effort is even, unlabored, Respiratory pattern is regular, symmetrical. Historical: - Allergies: 12:22 No Known Allergies; iw - PMHx: 12:22 None; iw - PSHx: 12:22 None; iw - Immunization history:: Adult Immunizations unknown. - Infectious Disease History:: Denies. - Social history:: Smoking status: Reported history of juuling and/or vaping. Screenin:24 [facility] ED Fall Risk Assessment (Adult) History of falling in the last 3 months, ld1 including since admission No falls in past 3 months (0 pts) Confusion or Disorientation No (0 pts) Intoxicated or Sedated No (0 pts) Impaired Gait No (0 pts) Mobility Assist Device Used No (0 pt) Altered Elimination No (0 pt) Score/Fall Risk Level 0 - 2 = Low Risk Oriented to surroundings, Maintained a safe environment, Educated pt \T\ family on fall prevention, incl call for assistance when getting out of bed, Assessed \T\ reinforced patient's understanding of fall precautions, Provided non-skid footwear, Hourly rounding (assess needs \T\ fall precautionary measures) done, Used ambulatory aids as needed (educated on \T\ assisted with), Used gait belt as appropriate. Abuse screen: Denies threats or abuse. Denies injuries from another. Nutritional screening: No deficits noted. Tuberculosis screening: No symptoms or risk factors identified. Assessment: 15:00 General: Appears in no apparent distress. comfortable, Behavior is calm, cooperative, ld1 appropriate for age. Pain: Denies pain. Neuro: Level of Consciousness is awake, alert, obeys commands, Oriented to person, place, time, situation. Cardiovascular: Capillary refill < 3 seconds Patient's skin is warm and dry. Respiratory: Reports cough that is non-productive, Airway is patent Respiratory effort is even, unlabored. GI: Abdomen is flat, non-distended. : No signs and/or symptoms were reported regarding the genitourinary system. EENT: No signs and/or symptoms were reported regarding the EENT system. Derm: No signs and/or symptoms reported regarding the dermatologic system. Musculoskeletal: No signs and/or symptoms reported regarding the musculoskeletal system. 16:23 Reassessment: Patient appears in no apparent distress at this time. No changes from ld1 previously documented assessment. Patient and/or family updated on plan of care and expected duration. Pain level reassessed. Vital Signs: 12:21 BP 127 / 88; Pulse 100; Resp 18; Temp 99.5; Pulse Ox 94% ; Weight 95.25 kg; Height 5 iw ft. 9 in. ; 13:30 BP 118 / 79; Pulse 81; Resp 17; Pulse Ox 98% on R/A; ld1 14:30 BP 122 / 69; Pulse 88; Resp 18; Pulse Ox 99% on R/A; ld1 16:23 BP 128 / 74; Pulse 79; Resp 18; Temp 98.1(O); Pulse Ox 100% on R/A; ld1 12:21 Body Mass Index 31.01 (95.25 kg, 175.26 cm) ED Course: 11:45 Patient arrived in ED. ra3 11:46 Jean Pierre Chris MD is Attending Physician. ec2 12:05 Attending Physician role handed off by Jean Pierre Chris MD rosalee 12:05 Lev Jesus MD is Attending Physician. rosalee 12:17 Chest Pa And Lat (2 Views) XRAY In Process Unspecified. EDMS 12:21 SARS RAPID Sent. iw 12:21 Flu Sent. iw 12:22 Triage completed. iw 12:22 Arm band placed on Patient placed in an exam room. iw 15:15 Suzanne Golden, LALITO is Primary Nurse. ld1 15:24 Ede Valiente MD is Hospitalizing Provider. rosalee 15:36 Lactate w/ 2H reflex if indic. Sent. ld1 15:36 Blood Culture Adult (2) Sent. ld1 16:24 No provider procedures requiring assistance completed. ld1 16:24 Patient has correct armband on for positive identification. Placed in gown. Bed in low ld1 position. Call light in reach. Side rails up X2. classroom monitor on. Pulse ox on. NIBP on. Door closed. Noise minimized. Warm blanket given. 17:25 Patient admitted, IV remains in place. ld1 Administered Medications: 14:35 CANCELLED (Duplicate Order): rocephin (ceftriaxone)1 grams IM once rosalee 14:37 CANCELLED (Duplicate Order): [id number] mg PO once rosalee 15:35 Drug: Rocephin IV 2 grams IV at per protocol once; Given slow IV push per pharmarcy ld1 instructions Route: IV; Rate: per protocol; Site: right antecubital; 17:23 Follow up: Response: No adverse reaction ld1 15:35 Drug: LevOfloxacin PO 750 mg PO once Route: PO; ld1 17:21 Follow up: Response: No adverse reaction ld1 15:35 Drug: NS 0.9% IV (30 ml/kg) 30 ml/kg IV at bolus once; Sepsis Protocol; to be given as ld1 a bolus over 90 minutes Route: IV; Rate: bolus; Site: right antecubital; 17:20 Follow up: Response: (VIS) Vaccine information sheet provided today. Questions and/or ld1 concerns addressed. VIS edition date: Apr 04, 2021.; IV Status: Completed infusion; IV Intake: 3000ml 15:35 Drug: Levalbuterol Inhalation 2.5 mg Inhalation once Route: Inhalation; ld1 17:20 Follow up: Response: No adverse reaction ld1 15:35 Drug: Ipratropium Inhalation Aerosol 0.5 mg Inhalation once Route: Inhalation; ld1 17:20 Follow up: Response: No adverse reaction ld1 15:35 Drug: Ibuprofen PO 800 mg PO once Route: PO; ld1 17:17 Follow up: Response: No adverse reaction ld1 17:19 Follow up: Response: No adverse reaction ld1 15:35 Drug: Acetaminophen PO 1000 mg PO once Route: PO; ld1 17:17 Follow up: Response: No adverse reaction ld1 15:35 Drug: Levalbuterol Inhalation 1.25 mg Inhalation once Route: Inhalation; ld1 15:53 Drug: Zithromax IVPB 500 mg IVPB once over 1 hrs; mix in 250 mL NS Route: IVPB; Infused ld1 Over: 1 hrs; Site: right antecubital; 17:22 Follow up: Response: No adverse reaction; IV Status: Completed infusion; IV Intake: ld1 250ml Medication: 16:24 VIS not applicable for this client. ld1 Intake: 17:20 IV: 3000ml; Total: 3000ml. ld1 17:22 IV: 250ml; Total: 3250ml. ld1 Outcome: 15:25 Decision to Hospitalize by Provider. rosalee 17:24 Admitted to Med/surg ld1 17:24 Condition: stable 17:25 Patient left the ED. ld1 Signatures: Dispatcher [employer] Lev Stuart MD MD cha Williams, Irene, RN RN iw Suzanne Golden RN RN ld1 Jean Pierre Chris MD MD ec2 Alva, Ruby ra3
[2024-09-01] MEDS ORDERED: NA CHLORIDE 0.9% 250 ML ONE (15:26)
[2024-09-01] MEDS ORDERED: AZITHROMYCIN 500 MG INJ IVPB ONE (15:26)
[2024-09-01] MEDS ORDERED: NA CHLORIDE 0.9% 3,000 ML ONE (15:26)
[2024-09-01 15:38] LABS: Albumin 3.6 g/dL (3.4-5.0); Albumin/Globulin Ratio 0.7 (1.1-1.8); Anion Gap 11.7 mEq/L (5.0-15.0); Bilirubin Total 0.6 mg/dL (0.2-1.0); Globulin 5.4 g/dL (2.3-3.5); Potassium 3.7 mEq/L (3.5-5.1)
[2024-09-01 16:35] VITALS: BMI 31.0
[2024-09-01] MEDS ORDERED: ALBUTEROL 2.5 MG/3 ML NEB SOL NEB PRN (16:35)
[2024-09-01] MEDS ORDERED: ONDANSETRON 4 MG/2 ML VIAL IV PRN (16:35)
--- NOTE | 2024-09-01 16:41 | P.HP ---
Certification for Inpatient Patient admitted to: Observation With expected LOS: <2 Midnights Patient will require the following post-hospital care: None Practitioner: I am a practitioner with admitting privileges, knowledge of patient current condition, hospital course, and medical plan of care. Services: Services provided to patient in accordance with Admission requirements found in Title 42 Section 412.3 of the Code of Federal Regulations Patient History Date of Service: 09/01/24 Reason for admission: Sepsis, pneumonia History of Present Illness: 29-year-old otherwise healthy male presents the emergency department with chief complaint of shortness of breath. He reports that he has been having upper respiratory symptoms including laryngitis for the last 2 weeks. Multiple family ember sick with similar symptoms. Patient was evaluated in the emergency department his labs were significant for leukocytosis with a white blood cell count of 20.1 right basilar opacification. Patient is criteria for sepsis without severe sepsis or septic shock at this time. Room air sats are around 94%, will admit under observation for sepsis, right lower lobe pneumonia. Allergies No Known Allergies Allergy (Unverified 09/01/24 16:35) - Past Medical/Surgical History -: None -: None Psychosocial/ Personal History: Live at home with family - Family History Family History: Reviewed- Non-Contributory - Social History Alcohol use: No CD- Drugs: No Caffeine use: Yes Place of Residence: Home Review of Systems 10-point ROS is otherwise unremarkable Respiratory: Cough, Shortness of Breath Physical Examination - Physical Exam General: Alert, In no apparent distress, Oriented x3 HEENT: Atraumatic, PERRLA, Mucous membr. moist/pink, EOMI Neck: Supple, 2+ carotid pulse no bruit, No LAD Respiratory: Normal air movement, Expiratory wheezes Cardiovascular: Regular rate/rhythm, Normal S1 S2 Gastrointestinal: Normal bowel sounds, No tenderness Musculoskeletal: No tenderness Integumentary: No rashes Neurological: Normal speech, Normal strength at 5/5 x4 extr, Normal tone - Studies Laboratory Data (last 24 hrs) 09/01/24 09/01/24 15:07 15:07 WBC 20.10 H Hgb 15.1 Hct 44.6 Plt Count 469 H Sodium 136 Potassium 3.7 BUN 14 Creatinine 1.03 Glucose 92 Total Bilirubin 0.6 AST 16 ALT 22 Alkaline Phosphatase 94 Microbiology Data (last 24 hrs): 09/01/24 12:20 Nasopharnyx Influenza Type A Antigen Screen - Final 09/01/24 12:20 Nasopharnyx Influenza Type B Antigen Screen - Final Assessment and Plan - Plan Assessment: Sepsis, RLL pneumonia Plan: Sepsis, RLL pneumonia IV abx PRN Nebs Expiratory wheezing present, will trial steroids as well Repeat CBC, check 02 in AM DVT PPX:Lovenox Code status:Full Discharge Plan: Home Plan to discharge in: 24 Hours - Advance Directives Does patient have a Living Will: No Does patient have a Durable POA for Healthcare: No - Code Status/Comfort Care Code Status Assessed: Yes (Full code) Critical Care: No Time Spent Managing Pts Care (In Minutes): 61
[2024-09-01] MEDS: ENOXAPARIN 40 MG/0.4 ML SQ SCH (17:30)
[2024-09-01] MEDS: BENZONATATE 100 MG CAP PO PRN (21:15)
[2024-09-01] MEDS: ACETAMINOPHEN 325 MG TABLET PO PRN (21:18)
[2024-09-02 07:21] LABS: Absolute Eosinophils 0.2 K/uL (0-0.5); Absolute Lymphocytes (CBC) 1.3 K/uL (0.7-4.9); Absolute Monocytes 0.7 K/uL (0.1-1.3); Absolute Neutrophil 8.9 K/uL (1.8-8.0); Basophils % 0.2 % (0-1.3); Eosinophils % 1.6 % (0-4.4); Hematocrit 39.3 % (39.6-49.0); Hemoglobin 13.4 g/dL (13.6-17.9); Lymphocytes % 11.9 % (15.3-44.8); MCH 29.4 pg (27.0-35.0); MCV 86.3 fL (80-100); Neutrophils % 80.3 % (41.7-73.7); Platelets 392 thou/uL (152-406); RBC Red Blood Cell Count 4.55 M/uL (4.33-5.43); Red Cell Distribution Width 13.4 % (12.1-15.2)
[2024-09-02 07:28] LABS: Anion Gap 5.1 mEq/L (5.0-15.0); Potassium 4.1 mEq/L (3.5-5.1)
[2024-09-02 07:42] VITALS: O2SAT 98
[2024-09-02] MEDS: CEFTRIAXONE 1,000 MG in NA CHLORIDE 0.9% 50 ML IVPB SCH (08:26)
[2024-09-02] MEDS: AZITHROMYCIN IV 500 MG in NA CHLORIDE 0.9% 250 ML IVPB SCH (08:27)
[2024-09-02 13:34] VITALS: BP 123/61; TEMP 98.2
--- NOTE | 2024-09-02 13:55 | P.DS ---
Admission Date: 09/01/24 Discharge Date: 09/02/24 Disposition: ROUTINE DISCHARGE Discharge Condition: GOOD Reason for Admission: Sepsis, pneumonia Brief History of Present Illness: 29-year-old otherwise healthy male presents the emergency department with chief complaint of shortness of breath. He reports that he has been having upper respiratory symptoms including laryngitis for the last 2 weeks. Multiple family ember sick with similar symptoms. Patient was evaluated in the emergency department his labs were significant for leukocytosis with a white blood cell count of 20.1 right basilar opacification. Patient is criteria for sepsis without severe sepsis or septic shock at this time. Room air sats are around 94%, will admit under observation for sepsis, right lower lobe pneumonia. Hospital Course: Assessment: Sepsis, RLL pneumonia Patient was admitted to the hospital for pneumonia, chest x-ray showed right basilar opacification. White blood cell count was 20 on admission, he was started on IV antibiotics and monitored overnight, white blood cell count down to 11.1 this morning, patient is feeling better, has not required supplemental oxygen. He has remained afebrile. On admission had some expiratory wheezing but this has improved with p.o. steroids as needed nebulizer treatments. Patient stable for discharge and outpatient follow-up at this time. Prescriptions for antibiotic, cough medicine, inhaler, short course of steroids sent to [facility] in [place]. Vital Signs/Physical Exam: Temp Pulse Resp BP Pulse Ox 98.2 F 88 16 123/61 94 09/02/24 12:00 09/02/24 12:00 09/02/24 12:00 09/02/24 12:00 09/02/24 12:00 General: Alert, In no apparent distress, Oriented x3 HEENT: Atraumatic, PERRLA, EOMI Neck: Supple, JVD not distended Respiratory: Clear to auscultation bilaterally, Normal air movement Cardiovascular: Regular rate/rhythm, Normal S1 S2 Gastrointestinal: Normal bowel sounds, No tenderness Musculoskeletal: No tenderness Integumentary: No rashes Neurological: Normal speech Laboratory Data at Discharge: WBC 11.10 thou/uL (4.3-10.9) H 09/02/24 06:48 Hgb 13.4 g/dL (13.6-17.9) L D 09/02/24 06:48 Hct 39.3 % (39.6-49.0) L 09/02/24 06:48 Plt Count 392 thou/uL (152-406) 09/02/24 06:48 Sodium 139 mEq/L (136-145) 09/02/24 06:48 Potassium 4.1 mEq/L (3.5-5.1) 09/02/24 06:48 BUN 13 mg/dL (7-18) 09/02/24 06:48 Creatinine 0.81 mg/dL (0.70-1.30) 09/02/24 06:48 Glucose 107 mg/dL (74-106) H 09/02/24 06:48 Total Bilirubin 0.6 mg/dL (0.2-1.0) 09/01/24 15:07 AST 16 U/L (15-37) 09/01/24 15:07 ALT 22 U/L (16-61) 09/01/24 15:07 Alkaline Phosphatase 94 U/L (45-117) 09/01/24 15:07 Home Medications: Albuterol Inhaler [Ventolin Inhaler*] 2 puff IH Q6H PRN #1 inh 09/02/24 Amox/Clavulanate [Augmentin 875-125 Tab] 875 mg PO BID 5 Days #10 tab 09/02/24 Benzonatate [Tessalon Perle] 100 mg PO TID PRN #25 cap 09/02/24 predniSONE [Deltasone*] 10 mg PO BID 5 Days #10 tab 09/02/24 New Medications: Amox/Clavulanate [Augmentin 875-125 Tab] 875 mg PO BID 5 Days #10 tab predniSONE [Deltasone*] 10 mg PO BID 5 Days #10 tab Benzonatate [Tessalon Perle] 100 mg PO TID PRN #25 cap PRN Reason: Cough Albuterol Inhaler [Ventolin Inhaler*] 2 puff IH Q6H PRN #1 inh PRN Reason: Shortness Of Breath Physician Discharge Instructions: Patient was admitted to the hospital for pneumonia, chest x-ray showed right basilar opacification. White blood cell count was 20 on admission, he was started on IV antibiotics and monitored overnight, white blood cell count down to 11.1 this morning, patient is feeling better, has not required supplemental oxygen. He has remained afebrile. On admission had some expiratory wheezing but this has improved with p.o. steroids as needed nebulizer treatments. Patient stable for discharge and outpatient follow-up at this time. Prescriptions for antibiotic, cough medicine, inhaler, short course of steroids sent to [facility] in [place]. Diet: Regular Activity: Ad jemima Followup: NONE,NONE [Primary Care Provider] - 1-2 Weeks Time spent managing pt's care (in minutes): 36
== END 2024-09-02 16:28 | disposition home or self-care (01) ==
LOC: ER 11:42 → 2ND 16:07
PROVIDERS: ADMIT Hospitalist; ATTEND Hospitalist
DX: J18.9 Pneumonia, unspecified organism (principal); A41.9 Sepsis, unspecified organism; F17.290 Nicotine dependence, other tobacco product, uncomplicated; Z11.52 Encounter for screening for COVID-19
CPT/HCPCS: 36415; 71046; 80048; 80053; 83605; 85025; 87040; 87804; 87811; 96365; 96375; 99285; G0378; J0696; J1650; J7030; J7050; J7614; J7644